=== PATIENT | female | born 1965 | race Caucasian/White ===

== ENCOUNTER → 2019-09-03 09:31 | Outpatient (CLI) | payer BC, SELFPAY ==
--- NOTE | 2019-09-03 09:41 | MM_ITS ---
PROCEDURE: MM DIG SCREENING MAMM BI W/CAD CLINICAL INDICATION: SCREENING There is a history of breast cancer in the patient's maternal aunt diagnosed after menopause. COMPARISON: [facility] DIGITAL MAMM-SCREEN BILATERAL from 11/09/2011 [facility] DIG MAMM-SCREEN YUNG from 08/31/2013 [facility] DIG MAMM-SCREEN YUNG W/CAD from 12/03/2016 TECHNIQUE: Standard CC and MLO images were obtained. R2 CAD reviewed. FINDINGS: Prominent diffuse heterogenic fibroglandular densities are seen in both breasts somewhat lessening the sensitivity of mammography. There is a stable asymmetric density inner quadrant left breast best seen on the CC view. This has been stable since the mammograms of 11/09/2011. Otherwise the findings are fairly symmetrical bilaterally. There is no new or suspicious lesion in either breast and no suspicious microcalcifications. IMPRESSION: Diffusely dense parenchymal pattern with no suspicious lesions seen BI-RAD Category: 2 Benign Finding(s) FOLLOW-UP: 1YR 1 Year Follow-up (A letter has been sent to the patient regarding results of the study.) Dictated by: Dr. Daniel Carr MD 09/05/2019 15:[address] Daniel Carr MD in [place] 09/05/2019 15:30
== END ==
PROVIDERS: PCP Family Medicine; Visit Provider Family Medicine
DX: Z12.31 Encounter for screening mammogram for malignant neoplasm of breast (principal); N60.19 Diffuse cystic mastopathy of unspecified breast
CPT/HCPCS: 77067

== ENCOUNTER → 2022-05-08 13:22 | Outpatient (CLI) | payer BC, SELFPAY ==
--- NOTE | 2022-05-08 13:31 | XR_ITS ---
FINAL REPORT CLINICAL HISTORY: wrist pain FINDINGS: AP, oblique, and lateral views of the right wrist were obtained. There is no prior exam for comparison. There is no acute fracture or dislocation. There is mild degenerative joint disease at the joint between scaphoid and distal row of carpal bones. The is no acute soft tissue abnormality. IMPRESSION: No acute osseous abnormality of the right wrist. Mild degenerative joint disease. Reviewed, Interpreted and Dictated by Hanna Decker MD Transcribed by Nelly Sylvester Authenticated and [facility]
== END ==
PROVIDERS: PCP Family Medicine; Visit Provider Orthopaedic Surgery
DX: M25.531 Pain in right wrist (principal)
CPT/HCPCS: 73110

== ENCOUNTER 2022-05-08 15:30 | Outpatient (RCR) | payer BC, SELFPAY | END 2022-05-08 16:30 | disposition home or self-care (01) | LOC: OT 15:30 | PROVIDERS: Visit Provider Orthopaedic Surgery | DX: G56.03 Carpal tunnel syndrome, bilateral upper limbs (principal) | CPT/HCPCS: 97763 ==

== ENCOUNTER → 2022-07-25 13:28 | Outpatient (CLI) | payer BC, SELFPAY ==
--- NOTE | 2022-07-25 13:31 | MM_ITS ---
PROCEDURE INFORMATION: Exam: MG Bilateral Screening 3D Mammography Exam date and time: 07/25/2022 1:24 PM Age: 56 years old Clinical indication: Screening. No family history of breast cancer. TECHNIQUE: Imaging protocol: Bilateral Screening tomosynthesis and 2D mammography including computer-aided detection (CAD) when performed. COMPARISON: 1. MG MM DIG SCREENING MAMM BI W/CAD 09/03/2019 9:45 AM 2. MG [facility] DIG MAMM-SCREEN YUGN W/CAD 12/03/2016 4:09 PM FINDINGS: MAMMOGRAPHY: Breast composition: There are scattered areas of fibroglandular density. Mass: None. Architectural distortion: None. Calcifications: No suspicious calcifications. Asymmetric density: None. Skin thickening: None. Axillary adenopathy: None. IMPRESSION: No mammographic evidence of malignancy. Annual screening is recommended unless otherwise clinically indicated. ASSESSMENT: BI-RADS Category 1: Negative
== END ==
PROVIDERS: PCP Family Medicine; Visit Provider Family Medicine
DX: Z12.31 Encounter for screening mammogram for malignant neoplasm of breast (principal)
CPT/HCPCS: 77063; 77067

== ENCOUNTER 2024-10-20 07:57 | Outpatient (CLI) | payer BC, SELFPAY ==
--- NOTE | 2024-10-20 08:02 | MM_ITS ---
PROCEDURE INFORMATION: Exam: MG Bilateral Screening 3D Mammography Exam date and time: 10/20/2024 7:51 AM Age: 59 years old Clinical indication: Screening examination TECHNIQUE: Imaging protocol: Bilateral Screening tomosynthesis and 2D mammography including computer-aided detection (CAD) when performed. COMPARISON: 1. MG MM DIG SCREENING MAMM BI W/CAD 07/25/2022 1:24 PM 2. MG MM DIG SCREENING MAMM BI W/CAD 09/03/2019 9:45 AM FINDINGS: MAMMOGRAPHY: Breast composition: The breasts are heterogeneously dense, which may obscure small masses. Mass: None. Architectural distortion: None. Calcifications: No suspicious calcifications. Asymmetric density: None. Skin thickening: None. Axillary adenopathy: None. IMPRESSION: No mammographic evidence of malignancy. Annual screening is recommended unless otherwise clinically indicated. ASSESSMENT: BI-RADS Category 1: Negative.
== END 2024-10-20 23:59 | disposition home or self-care (01) ==
LOC: RAD 07:58
PROVIDERS: PCP Family Medicine; Visit Provider Family Medicine
DX: Z12.31 Encounter for screening mammogram for malignant neoplasm of breast (principal)
CPT/HCPCS: 77063; 77067

== ENCOUNTER 2025-01-14 10:21 | Day surgery (SDC) | payer BC, SELFPAY ==
[2025-01-12 09:32] VITALS: BMI 22.4
[2025-01-14 10:45] VITALS: BP 100/46; PULSE 60; RESP 18; TEMP 36.2; O2SAT 97
[2025-01-14] MEDS: LACTATED RINGERS 1000ML 1,000 ML 50 ML IV (10:45)
--- NOTE | 2025-01-14 11:28 | EXP.ANES.CKL ---
[facility] Disclaimer: The information contained in this section may have been updated after the patient was seen, as this information can be updated by other users. Medical History (Updated 01/14/25 @ 10:44 by Babs Braga RN) No significant past medical history Surgical History Hx of tonsillectomy Hx of colonoscopy Family History Other No significant family history Social History Smoking Status: Never smoker alcohol intake: current substance use type: denies use current occupational status: employed Travel in the last 8 weeks: None [facility] Anesthesia Checklist Patient Identification Patient Identification: Arm Band Structural Data Admitted From: Home Planned Operative Procedure/s: Colonoscopy Consent for Planned Operative Procedure(s) Verified: Yes Verified Documents: Surgical Consent and History and Physical NPO Status Verified Time NPO: 09:00 (finished prep) Additional verifications Anesthesia Reactions: No Airway Assessment Mallampati Score:: Class I C-Spine Mobility Assessed: Yes TMJ Mobility Assessed: Yes Dentition: Good Dentition Neurological Assessment Level of Consciousness: Awake, Alert and Appropriate Anesthesia Plan Anesthesia Risk discussed: Yes Anesthesia Plan: Verified ASA Class: I Anesthesia Type: MAC
[2025-01-14 11:58] VITALS: O2SAT 100
--- NOTE | 2025-01-14 12:01 | EXP.HP ---
History of Present Illness *Admission Date: 01/14/25 *Reason for visit:: Personal history of adenomatous polyps *History of present illness: Mrs. Lyles is a 59-year-old female who is here for surveillance colonoscopy. She did have a larger more advanced adenomatous polyp 8 years ago (category 3 tubulovillous adenoma with dysplasia) removed from the sigmoid or rectum. She did return at 6 months for sigmoidoscopy and there was no residual polyp. She has had no follow-up surveillance since then. The examination is deemed medically necessary for surveillance colonoscopy. The patient has been seen, interviewed and examined prior to the procedure by both myself and the anesthesia provider. [facility] Disclaimer: The information contained in this section may have been updated after the patient was seen, as this information can be updated by other users. Medical History (Updated 01/14/25 @ 12:03 by Abdullahi Prado II, MD) No significant past medical history Surgical History Hx of tonsillectomy Hx of colonoscopy Family History Other No significant family history Social History (Updated 01/14/25 @ 11:29 by Quinton Cartagena CRNA) Smoking Status: Never smoker alcohol intake: current substance use type: denies use current occupational status: employed Travel in the last 8 weeks: None Have you lived/traveled outside [place] in past 30 days?: No Contact w/someone who lives/traveled outside US past 30 days?: No Exposure to someone with infectious disease in past 14 days?: No Do you have a fever (greater than 100.4 F or 38 C)?: No Have you tested positive for COVID-19: No Exposed to someone with COVID-19 in past 14 days?: No Do you have a sore throat?: No Do you have a cough?: No Do you have any weakness?: No Are you experiencing any nausea/vomitting?: No Do you have any diarrhea?: No Are you experiencing any unusual bleeding?: No Do you have any muscle aches/pain?: No Do you have any abdominal pain?: No Are you experiencing loss of taste or smell?: No Other Medical History Have you received the Flu Vaccine for this season: No Have you received the Pneumonia Vaccine: No Review of Systems Review of Systems Review of systems (narrative): Negative *Cardiovascular Comments: Negative *Gastrointestinal Comments: Negative *Genitourinary Comments: Negative *Musculoskeletal Comments: Negative *Neurologic Comments: Negative Meds Home Medications and Allergies Home Medications ?Medication ?Instructions ?Recorded ?Confirmed ?Type calcium carbonate (Calcium 600) 600 mg PO DAILY 05/08/22 01/12/25 History cholecalciferol (vitamin D3) 50 50 mcg PO DAILY 05/08/22 01/12/25 History mcg (2,000 unit) capsule potassium citrate 99 mg capsule 99 mg PO DAILY 05/08/22 01/12/25 History New Prescriptions to Start Prescriptions: Allergies Allergy/AdvReac Type Severity Reaction Status Date / Time No Known Allergies Allergy Verified 01/14/25 10:45 Exam Data for Last 24 hours Vital signs and Labs for Last 24 Hours: Temp Pulse Resp BP Pulse Ox O2 Del Method O2 Flow Rate 97.2 F L 60 18 100/46 L 97 Nasal Cannula 3 01/14/25 10:45 01/14/25 10:45 01/14/25 10:45 01/14/25 10:45 01/14/25 10:45 01/14/25 11:58 01/14/25 11:58 I & O for Last 24 hours: Intake & Output 01/11/25 01/12/25 01/13/25 01/14/25 23:59 23:59 23:59 23:59 Weight 143 lb *Routine HEENT Exam Head: Present normocephalic Eye: Present EOMI and PERRL ENT: Present mucous membranes moist *Routine Neck Exam Neck: Present supple *Routine Respiratory Exam Respiratory: Present CTA bilaterally *Routine Cardiovascular Exam Cardiovascular: Present RRR *Routine Abdominal Exam Abdominal: Present soft and normoactive bowel sounds; Absent tenderness *Routine Rectal Exam Rectal:: deferred *Routine Genitalia Exam Genitalia:: deferred *Routine Extremities Exam Extremities: Absent cyanosis, clubbing or edema *Routine Skin Exam Skin: Present warm; Absent rash *Routine Neurological Exam Neurological: Present alert and oriented X3 Assessment and Plan *Assessment and plan (1) Personal history of adenomatous and serrated colon polyps: Status: Acute Category: Medical Code(s): Z86.0101 - Personal history of adenomatous and serrated colon polyps Plan A/P: 1. Personal history of advanced adenomatous colon polyp with last colonoscopy 8 years ago is the preprocedural diagnosis. The patient will be anesthetized/sedated using MAC sedation. The patient has been seen and examined. Cardiac and lung assessment prior to the examination is stable. Proceed with planned surveillance colonoscopy
--- NOTE | 2025-01-14 12:03 | P.PCN_ITS ---
[facility] Procedure Note Date: 01/14/25 Time: 12:17 Procedure Note:: Colonoscopy Procedure Report: Colonoscopy Endoscopist: Abdullahi Prado II, MD Referring physician: Shiva Savage MD Date of Procedure: January 14, 2025 Equipment: Olympus 190 variable stiffness pediatric colonoscope Sedation: MAC sedation Indication: Mrs. Lyles is a 59-year-old female who is here for follow-up surveillance colonoscopy. She did have a colonoscopy 8 years ago and had a larger sigmoid or rectal advanced adenoma removed. She returned at 6 months for sigmoidoscopy and there was no residual polyp. She has not had a colonoscopy since then. The patient reports no abdominal pain, weight loss, change in her bowel habits or rectal bleeding. She reports no family history of colon cancer. Procedure: Prior to the procedure, a history and physical exam was performed, and patient's medications and allergies were reviewed. The risks, benefits and alternatives of the sedation and procedure were discussed with the patient. All questions were answered and informed consent was obtained. The patient was brought to the procedure room. Patient identification and proposed procedure were verified by the physician and the nurse. The patient was placed in a left lateral decubitus position and the scope was passed under direct vision. Throughout the procedure, the patient's blood pressure, pulse, and oxygen saturations were monitored continuously. The colonoscopy was accomplished without difficulty. The patient tolerated the procedure well. Findings: On digital rectal examination there was normal rectal tone. There were no external hemorrhoids. The colonoscope was introduced through the anal canal to the rectum and advanced to the cecum. The ileocecal valve and appendiceal orifice were identified. The scope was advanced a short distance into the ileum which appeared grossly normal. The scope was then withdrawn into the colon. The cecum, ascending, transverse, descending, sigmoid and rectum were grossly normal. There were no mucosal abnormalities identified. Upon retroflexion within the rectum there were grade 1-2 internal hemorrhoids. The preparation was excellent throughout with [place] Preparation Score of 9. The cecal time was 10 minutes. Impression: 1. Normal colonoscopy with intubation of the terminal ileum Plan: The patient will not require surveillance colonoscopy again for 10 years.
[2025-01-14 12:20] VITALS: BP 96/59; PULSE 86; RESP 18; TEMP 36.1; O2SAT 97
[2025-01-14 12:30] VITALS: BP 94/80; PULSE 84; RESP 18; O2SAT 96
[2025-01-14 12:40] VITALS: BP 101/66; PULSE 82; RESP 18; O2SAT 96
[2025-01-14 12:50] VITALS: BP 104/62; PULSE 86; RESP 18; O2SAT 98
== END 2025-01-14 12:54 | disposition home or self-care (01) ==
PROVIDERS: PCP Family Medicine; Visit Provider Internal Medicine Gastroenterology
PROC: 0DJD8ZZ Inspection of Lower Intestinal Tract, Via Natural or Artificial Opening Endoscopic (ICD-10-PCS; CPT 45378; principal; 2025-01-14 12:00)
DX: K64.8 Other hemorrhoids (principal); Z86.0101 Personal history of adenomatous and serrated colon polyps
CPT/HCPCS: 45378; J7120